=== PATIENT | male | born 1990 | race Caucasian/White ===

== ENCOUNTER → 2018-07-24 | Outpatient (CLI) | payer BC ==
--- NOTE | 2018-07-24 16:17 | RAD ---
Right breast ultrasound, 07/24/2018: History: Retroareolar lump A targeted exam of the retroareolar region was performed. There is a vague hypoechoic area in this region measuring 12 x 8 mm. Its margins are somewhat ill-defined. There is no definite posterior acoustic enhancement or shadowing. No similar process is evident on the left. Right digital mammography, 07/24/2018: A BB was placed on the nipple for these images. There is very little breast tissue to image. On the oblique view a faint poorly defined retroareolar density measuring just over 1 cm is seen. No suspicious microcalcifications are seen. IMPRESSION: Small retroareolar density most likely representing unilateral gynecomastia. A neoplastic etiology cannot be excluded. Clinical surveillance is suggested. BI-RADS 3-probably benign findings
== END | disposition home or self-care (01) ==
LOC: MAMMO 13:50
PROVIDERS: ATTEND Family Medicine
DX: N63.41 Unspecified lump in right breast, subareolar (principal)
CPT/HCPCS: 76641; 77065